=== PATIENT | female | born 1995 | race Caucasian/White ===

== ENCOUNTER 2022-04-16 19:51 | Emergency (ER) | payer BC ==
[~2022-04-16] VITALS: Ht 157.5 cm; Wt 59.0 kg
--- NOTE | 2022-04-16 22:07 | NUR ---
BIBS FOR C/O FOUND LARVAE IN HER SCALP TODAY S/P HAD A INSECT BITE A MONTH AGO IN [place]. PATIENT ALERT AND ORIENTED X4. AMBULATORY WITH NON LABORED BREAHTING IN CHAIR 02 AWAITING MD CRUZ.
[2022-04-17] MEDS ORDERED: CEPH500C2 PO (00:18)
[2022-04-17 00:46] VITALS: BP 118/71
--- NOTE | 2022-04-17 00:46 | NUR ---
PT OK TO DISCHARGE PER DR SHANE. Patient discharged to home in stable condition. Written and verbal after care instructions given. Patient verbalizes understanding of instruction.Patient is awake and alert to self, day, and place. PT ambulatory with a steady gait
== END 2022-04-17 00:46 | disposition home or self-care (01) ==
LOC: ER 19:53
DX: B88.8 Other specified infestations (principal); R22.0 Localized swelling, mass and lump, head; F32.A Depression, unspecified; Z60.2 Problems related to living alone
CPT/HCPCS: 70450-TC